=== PATIENT | female | born 1930 | race Caucasian/White ===

== ENCOUNTER 2016-04-11 17:08 | Inpatient (IN) | payer MEDICARE ==
[~2016-04-11] VITALS: Ht 165.1 cm; Wt 54.9 kg
--- NOTE | ~2016-04-11 | PR ---
[place], [place] PROGRESS NOTE NAME: SABRINA PENA UNIT #: [id number] ROOM: 317 DOCTOR: JUAQUIN CUELLAR MD BIRTHDATE: [birth year] DOS: 04/13/2016 INTERVAL NOTE CHIEF COMPLAINT: "Oh good morning there, is it breakfast." SUMMARY OF THE VISIT: The patient was interviewed as she sat down in the dining area. She smiled as I approached and engaged in very superficial pleasant conversation. She voiced no complaint. She also lacked any spontaneity. Her responses to me tended to be vague and superficial and at times inappropriate. There is no excessive emotionality or inappropriate emotionality noted at this time. There likewise was no overt sedation, somnolence or other type of side effects. MENTAL STATUS: She was alert and oriented to self. Unclear about place, certainly not time. Mood seems fairly euthymic. Affect appropriate. There is no scar or hypomania. There are no gross psychotic symptoms. Short-term memory was exceedingly poor. Otherwise, she was intact. PLAN: I will increase the Nuedexta 20-10 to twice daily, hoping to attempt to decrease the pseudobulbar affect symptomatology. Engage in individual and cobos milieu activity with the plan then to return home or to an alternative placement when stable. JUAQUIN CUELLAR MD CM:PNTRANS [phone] JUAQUIN CUELLAR MD 04/14/16 0146 interface
--- NOTE | ~2016-04-11 | PR ---
[place], [place] PROGRESS NOTE NAME: SABRIAN PENA UNIT #: [id number] ROOM: 317 DOCTOR: JUAQUIN CUELLAR MD BIRTHDATE: [birth year] DOS: 04/16/2016 INTERVAL NOTE CHIEF COMPLAINT: "Oh good morning there, how are you." SUMMARY OF THE VISIT: The patient was interviewed in the dining area where she was sitting in front of her breakfast eating. She had most of it consumed by the time I had gotten there. She smiled readily upon approach and voiced no complaints, stating that she slept well, has a good appetite and denies any pain or discomfort. She was pleasant and bright and no excessive emotionality was noted. Likewise, there were no overt signs of medication side effects. There was no sedation, somnolence, extrapyramidal symptoms, tardive dyskinesia. MENTAL STATUS: She is alert and oriented to self, possibly place, not time. Mood does seem to be trending towards euthymia. Affect is more appropriate. There were no symptoms of scar or hypomania. There were no auditory or visual hallucinations, delusions or paranoia. Short-term memory had gaps, otherwise she is intact. PLAN: I will maintain her current psychotropic regimen. Continue to engage in individual and cobos milieu activity with the plan then to return to the least restrictive environment when psychiatrically stable. JUAQUIN CUELLAR MD CM:PNTRANS [phone] JUAUQIN CUELLAR MD 04/16/16 221 interface
--- NOTE | ~2016-04-11 | PR ---
[place], [place] PROGRESS NOTE NAME: SABRINA PENA UNIT #: [id number] ROOM: 317 DOCTOR: LELA BUI BIRTHDATE: [birth year] DOS: 04/14/2016 SUMMARY OF VISIT: The patient was interviewed in the dining room where she engaged in conversation, was pleasant with me; however, all night apparently she was yelling, screaming, requiring p.r.n. medications. There is a culture still pending on her. MENTAL STATUS: She is alert and oriented to self only. I cannot really get a lot out of her actually. Not behavioral this morning, but apparently evenings are guy bad. PLAN: Dr. White increased her Nuedexta yesterday. Like I said, her cultures are still pending. If this is a UTI, we will get her started on an antibiotic and go from there. I will wait and see the results of the culture first and then make changes as necessary. SHANON BUI CNP CM:PNTRANS [phone] LELA BUI 04/15/16 0031 interface
--- NOTE | ~2016-04-11 | WRIGHTHP ---
[place], [place] PATIENT HISTORY AND PHYSICAL EXAM NAME: SABRINA PENA UNIT #: [id number] ROOM: 317 DOCTOR: JUAQUIN CUELLAR MD BIRTHDATE: [birth year] DOS: 04/12/2016 CHIEF COMPLAINT: "Oh, I just need them to get me some help." HISTORY OF PRESENT ILLNESS: This is an 86-year-old white female who is well known to me from a previous psychiatric admission here to the [facility] as well as continued outpatient care in my [place] office. The patient had presented to Orin Helms, a nurse practitioner who works with me on Saturday. At this point in time, the family members did report that the patient has had a significant mental status change. She has been barking and growling and crawling on the floor for approximately 2 weeks. Attempts to redirect her have been met with her becoming increasingly more agitated and aggressive. Attempts to adjust any medications likewise have been ineffective. Due to the significant mental status change, it was felt that an inpatient evaluation and stabilization was warranted. PAST MEDICAL HISTORY: Remarkable for some coronary artery disease, hyperlipidemia, hypothyroidism, diabetes, hypertension. MENTAL STATUS: The patient was alert and oriented to person, possibly to place, although it is unclear, certainly not to time. Responses were short and simple. She had a very difficult time processing conversation and had a very difficult time formulating significant thoughts. There was no spontaneity. There is no mood lability noted, no agitation directed towards me. Short-term memory was exceedingly poor. DIAGNOSIS: Brief psychotic disorder and pseudobulbar affect. PLAN: I will go ahead and start her on Nuedexta 20-10 one tablet daily and resume her Exelon and Namenda. I have already increased her Latuda from 20 mg at bedtime to 40 to attempt to stabilize her mood and decrease her impulsivity and aggression. We will continue to engage her in individual and cobos milieu activity with the plan to return home or to an alternative placement when psychiatrically stable. [place], [place] PATIENT HISTORY AND PHYSICAL EXAM NAME: SABRINA PENA UNIT #: [id number] ROOM: 317 DOCTOR: JUAQUIN CUELLAR MD BIRTHDATE: [birth year] JUAQUIN CUELLAR MD CM:SARAHS:PATIENT HISTORY AND PHYSICAL EXAMINATION 8 8 JUAQUIN CUELLAR MD 04/12/1648 interface
--- NOTE | ~2016-04-11 | PR ---
[place], [place] PROGRESS NOTE NAME: SABRINA PENA UNIT #: [id number] ROOM: 317 DOCTOR: JUAQUIN CUELLAR MD BIRTHDATE: [birth year] DOS: 04/17/2016 INTERVAL NOTE CHIEF COMPLAINT: "Oh thank you honey." SUMMARY OF THE VISIT: The patient was interviewed in the dining area where the [employer] tech had just given her, her breakfast. I sat down next to her to engage her in conversation. She smiled readily and thanked me for visiting. She was bright and pleasant and engaged readily in very superficial conversation. There was no agitation or aggression. There was no mood lability. Nurses report that she had a good evening last night and there were no episodes of growling or other types of inappropriate verbalizations. Overall, her level of inappropriate excessive emotionality has lessened since the addition of the Nuedexta. She is tolerating the current medication regimen well without any apparent side effects. MENTAL STATUS: She is alert and oriented to person, possibly place, but not time. Mood does seem to be strongly trending towards euthymia. Affect is much more appropriate. There is no symptom suggestive of scar or hypomania. There is no overt auditory or visual hallucinations. No delusions are present. Short term memory is exceedingly poor. PLAN: I will maintain the current psychotropic regimen, continue to engage in individual and cobos milieu activity with the plan to return home when psychiatrically stable. JUAQUIN CUELLAR MD CM:PNTRANS [phone] JUAQUIN CUELLAR MD 04/17/16 215 interface
--- NOTE | ~2016-04-11 | DS ---
[place], [place] DISCHARGE SUMMARY NAME: SABRINA PENA UNIT #: [id number] ROOM: 317 DOCTOR: LELA BUI BIRTHDATE: [birth year] DOS: 04/18/2016 HISTORY OF PRESENT ILLNESS: This is an 86-year-old female known to us from our psych admissions [facility] with continued outpatient care at [place] office. She presented to the nurse practitioner Letty Zacarias at our office. Family reports that she has had significant mental status change, barking, growling, crawling on the floor for approximately 2 weeks. Attempts to redirect, she has become increasingly more agitated and aggressive. Attempts to adjust medications as an outpatient, likewise has been ineffective due to the significant mental status change. It determined that an inpatient evaluation to rule out organic factors and for stabilization was warranted. PAST MEDICAL HISTORY: Includes coronary artery disease, hyperlipidemia, hypothyroidism, diabetes, hypertension. DIAGNOSES: Brief psychotic disorder and pseudobulbar affect along with dementia. HOSPITAL COURSE: We went ahead and started her on Nuedexta 1 tablet every day for 7 days and increased it to q.12 hours. She responded very well to this. We also increased her Latuda from 20 to 40 mg at bedtime to help stabilize her mood and decrease her impulsivity and aggression which she responded to. We resumed her Exelon and Namenda. The Namenda will eventually most likely be titrated to the maximum dose of 10 mg b.i.d. if needed. She responded well to the medication changes. MENTAL STATUS: She is alert and oriented to person and that is about it. There are no overt signs of auditory or visual hallucinations, delusions, paranoia, scar or hypomania at this time. Short term memory is very poor. PLAN: The patient is being discharged home with hospice care. She is in stable condition. Again, she is on the Latuda to help with her depression and impulsivity and mood lability. She is on Nuedexta for pseudobulbar affect, it seems to help with the growling and the noise making that she is making as far as increased emotionality and etc., vitamin D 50,000 international units every week due to vitamin D deficiency and the Namenda and the Exelon for her dementia. [place], [place] DISCHARGE SUMMARY NAME: SABRINA PENA UNIT #: [id number] ROOM: 317 DOCTOR: LELA BUI BIRTHDATE: [birth year] SHANON BUI CNP CM:DISCHARG [id number] LELA BUI 05/22/16 1425 interface
--- NOTE | ~2016-04-11 | PR ---
[place], [place] PROGRESS NOTE NAME: SABRINA PENA UNIT #: [id number] ROOM: 317 DOCTOR: LELA BUI BIRTHDATE: [birth year] DOS: 04/15/2016 SUMMARY OF VISIT: The patient assessed and interviewed in dining room, she engaged in conversation minimal, nothing substantial. No voiced complaints from her or staff. There were no issues with her yesterday. Her cultures did come back, but they were E. Coli less than 50,000, so, it is doubtful that the hospitalist will choose to treat it at this point in time. We will continue to monitor. MENTAL STATUS: She is alert and oriented to self only really. No behaviors noted this morning or this past evening. PLAN: Her Nuedexta was increased 2 days ago. She is tolerating this well without side effects. We will continue to try to engage in individual and cobos milieu therapy with the plan to discharge once stable. SHANON BUI CNP CM:PNTRANS [id number] LELA BUI 04/15/16 2356 interface
[~2016-04-11 17:08] MED LIST: AMARYL4 MG PO; ASPIRIN ADULT L81 M1 PO; B12,B-12,B 12500 MC1 PO; CENTRAL VITE F1 EACH PO; ESTER-C 500 MG1 EACH PO; EXEL13.31 T; EXELON9.5 MG/24 T; ISOSORBIDE MONO10 MG PO; LANTUS100 U/ML SC; LASIX20 MG PO; LATANOPROST2.5 ML OP; LATU20TA PO; LATU40TA PO; LOPRESSOR25 MG PO; MELADOX NATURAL3 MG PO; MIRALAX POWDER255 G1 PO; NAMENDA-21 PO; NORVASC5 MG PO; PLAVIX75 MG PO; POTASSIUM CHLO20 ME3 PO; PRAVACHOL40 MG PO; PRAVASTATIN SOD10 MG PO; PRESERVISION1 SGL PO; PROTONIX40 MG PO; RANEXA500 MG PO; ROPINIROLE HYDRO1 MG PO; SYNTHROID,LEV112 MCG PO; Slow-K 8MEQ8 MEQ PO; TRAVATAN Z 5 ML5 ML OPH; TRAZODONE50 MG PO; VITAMIN D31000 IU PO; ZESTRIL,PRINIVI10 MG PO
[2016-04-11 17:42] VITALS: BP 150/68
[2016-04-11] MEDS ORDERED: PLAVIX75 M1 PO (18:03)
[2016-04-11] MEDS ORDERED: LATU40TA PO (18:22)
[2016-04-11] MEDS ORDERED: NAMENDA-5 PO (18:23)
[2016-04-11] MEDS ORDERED: ATIVAN1 MG PO (18:24)
[2016-04-11] MEDS ORDERED: ATIVAN2 MG/ML IM (18:25)
[2016-04-11] MEDS ORDERED: GEODON20 M1 IM (18:26)
[2016-04-11 19:16] LABS: CHOLESTEROL 247 mg/dL (<200); HDL CHOLESTEROL 48 mg/dl (40-60); TRIGLYCERIDES 438 mg/dl (<150)
[2016-04-11 19:19] LABS: HEMOGLOBIN A1c 7.8 % (4.8-5.6)
[2016-04-11 20:00] VITALS: BP 144/66
[2016-04-11 22:10] VITALS: BP 144/66
[2016-04-12 08:10] LABS: VITAMIN D, 25-HYDROXY 28.4 ng/mL (30-100)
[2016-04-12 08:34] VITALS: BP 147/78
[2016-04-12 20:00] VITALS: BP 132/57
[2016-04-13 08:20] VITALS: BP 140/76
[2016-04-13 20:00] VITALS: BP 133/62
[2016-04-14 07:52] VITALS: BP 124/53
[2016-04-14 19:55] VITALS: BP 142/74
[2016-04-15 08:03] VITALS: BP 136/58
[2016-04-15 20:28] VITALS: BP 132/58
[2016-04-16 08:00] VITALS: BP 120/53
[2016-04-16 19:43] VITALS: BP 134/58
[2016-04-17 11:07] VITALS: BP 130/56
[2016-04-17 19:49] VITALS: BP 127/63
[2016-04-18] MEDS ORDERED: VITAMIN D50000 I3 PO (08:21)
[2016-04-18] MEDS ORDERED: NAMENDA10 MG PO (08:21)
[2016-04-18] MEDS ORDERED: NUED1CAP PO (08:21)
[2016-04-18 09:18] VITALS: BP 134/51
== END 2016-04-18 14:45 | disposition home or self-care (01) | DRG 885 ==
LOC: 3N 17:08
PROVIDERS: Psychiatry & Neurology Psychiatry
DX: F23 Brief psychotic disorder (principal); G30.9 Alzheimer's disease, unspecified; F02.81 Dementia in other diseases classified elsewhere, unspecified severity, with behavioral disturbance; E11.65 Type 2 diabetes mellitus with hyperglycemia; I25.10 Atherosclerotic heart disease of native coronary artery without angina pectoris; E78.5 Hyperlipidemia, unspecified; I10 Essential (primary) hypertension; E03.9 Hypothyroidism, unspecified; F48.2 Pseudobulbar affect; R82.71 Bacteriuria; Z82.49 Family history of ischemic heart disease and other diseases of the circulatory system; Z88.8 Allergy status to other drugs, medicaments and biological substances; Z79.899 Other long term (current) drug therapy